=== PATIENT | female | born 1980 | race Caucasian/White ===

== ENCOUNTER 2017-07-10 20:05 | Emergency (ER) | payer OTHER ==
[~2017-07-10] VITALS: Ht 172.7 cm; Wt 94.0 kg
[~2017-07-10 20:05] MED LIST: FURO-92 PO; ZOLP-413 PO
[2017-07-10 20:08] VITALS: BP 121/67
[2017-07-10] MEDS ORDERED: HYDROcodone/APAP 5/325 TABLET PO PRN (21:00)
[2017-07-10] MEDS ORDERED: HYDROcodone/APAP 5/325 TABLET ONE (21:02)
== END 2017-07-10 21:31 | disposition home or self-care (01) ==
LOC: ED 21:22
DX: S92.912A Unspecified fracture of left toe(s), initial encounter for closed fracture (principal); X58.XXXA Exposure to other specified factors, initial encounter; Y93.89 Activity, other specified; Y92.009 Unspecified place in unspecified non-institutional (private) residence as the place of occurrence of the external cause; Y99.8 Other external cause status
CPT/HCPCS: 99284